=== PATIENT | female | born 1995 | race African-American/Black ===

== ENCOUNTER 2018-05-27 16:39 | Emergency (ER) | payer MEDICAID ==
[~2018-05-27] VITALS: Ht 160 cm; Wt 65.0 kg
[2018-05-27 17:14] VITALS: BP 109/53
== END 2018-05-28 | disposition left against medical advice (07) ==
LOC: ER 16:39
DX: M25.511 Pain in right shoulder (principal); F32.9 Major depressive disorder, single episode, unspecified; V87.8XXA Person injured in other specified noncollision transport accidents involving motor vehicle (traffic), initial encounter; Y93.9 Activity, unspecified; Y92.9 Unspecified place or not applicable
CPT/HCPCS: 99281

== ENCOUNTER 2019-07-09 14:22 | Emergency (ER) | payer MEDICAID ==
[~2019-07-09] VITALS: Ht 149.9 cm; Wt 59.0 kg
[2019-07-09 18:28] VITALS: BP 113/66
== END 2019-07-09 18:30 | disposition home or self-care (01) ==
LOC: ER 17:07
DX: T62.91XA Toxic effect of unspecified noxious substance eaten as food, accidental (unintentional), initial encounter (principal); R19.7 Diarrhea, unspecified; Y92.89 Other specified places as the place of occurrence of the external cause
CPT/HCPCS: 99283

== ENCOUNTER 2019-07-10 04:41 | Emergency (ER) | payer MEDICAID ==
[~2019-07-10] VITALS: Ht 149.9 cm; Wt 60.0 kg
[2019-07-10] MEDS ORDERED: MAGNESIUM/ALUMINUM HYDROXIDE/SIMETHICONE 30ML UDC PO ONE (06:30)
[2019-07-10] MEDS ORDERED: FAMOTIDINE 20MG/2ML VIAL IV ONE (06:30)
[2019-07-10] MEDS ORDERED: VISCOUS LIDOCAINE 2% 15 ML UDC MM ONE (06:30)
[2019-07-10] MEDS ORDERED: ONDANSETRON HCL 4MG/2ML INJ IV ONE (06:45)
[2019-07-10] MEDS ORDERED: MORPHINE SULFATE 4 MG/ML CPJ (NOT FOR IM USE) IV ONE (06:45)
[2019-07-10 10:00] VITALS: BP 131/79
== END 2019-07-10 10:10 | disposition home or self-care (01) ==
LOC: ER 04:41
DX: R10.13 Epigastric pain (principal); F32.9 Major depressive disorder, single episode, unspecified
CPT/HCPCS: 76705; 96374; 96375; 99284; J2270; J2405; J3490